=== PATIENT | male | born 1985 | race Caucasian/White ===

== ENCOUNTER 2021-01-24 12:09 | Emergency (ER) | payer SELFPAY ==
[~2021-01-24] VITALS: Ht 162.6 cm; Wt 90.7 kg
--- NOTE | 2021-01-24 12:15 | NUR ---
Patient to ER bed 3 to gown for evaluation. Side rails up.
--- NOTE | 2021-01-24 12:20 | NUR ---
Pt walked in to ER with c/o right hand pain 10/10 and swelling since last night. Reports punching a wall. Denies any other trauma. V/S stable, no acute distress noted.
[2021-01-24 12:31] VITALS: BP_SYST 154
--- NOTE | 2021-01-24 12:37 | NUR ---
ER Dr. Adams at bedside examining patient.
--- NOTE | 2021-01-24 12:59 | NUR ---
Radiology at bedside for hand x-ray
[2021-01-24] MEDS ORDERED: CEPH250C PO (14:00)
[2021-01-24] MEDS ORDERED: DIPH-TET-PERTUS Vaccine 0.5 ML VIAL (ADACEL) I.M. ONE (14:00)
--- NOTE | 2021-01-24 14:05 | NUR ---
Patient given written and verbal discharge instructions and verbalizes understanding. ER MD discussed with patient the results and treatment provided. Patient in stable condition. ID arm band removed. No prescriptions given. Patient educated on pain management and to follow up with PMD. Pain Scale 0. Opportunity for questions provided and answered. Medication side effect fact sheet provided.
[2021-01-24 14:08] VITALS: BP_SYST 154
== END 2021-01-24 14:08 | disposition left against medical advice (07) ==
LOC: SED 12:09
DX: S62.310B Displaced fracture of base of second metacarpal bone, right hand, initial encounter for open fracture (principal); Z79.899 Other long term (current) drug therapy; W22.8XXA Striking against or struck by other objects, initial encounter; Y93.89 Activity, other specified; Y92.89 Other specified places as the place of occurrence of the external cause; Y99.8 Other external cause status
CPT/HCPCS: 90715; 99283